=== PATIENT | male | born 1950 | race Caucasian/White ===

== ENCOUNTER 2021-02-28 13:36 | Emergency (ER) | payer MEDICARE, OTHER ==
[~2021-02-28 13:36] MED LIST: ADVIL200 M1 PO; ALLOPURINOL300 MG PO; ASPIRIN EC81 MG PO; B COMPLEX1 EACH PO; CHLORTABS4 MG PO; KRILL OIL 3501 EACH PO; MAGNESIUM CHLOR70 MG PO; SYNTHROID25 MCG PO; VITAMIN D325 GM PO
[2021-02-28 14:11] LABS: BILIRUBIN NEGATIVE (NEGATIVE); BLOOD NEGATIVE Ery/uL (NEGATIVE); CLARITY CLEAR (CLEAR); COLOR YELLOW (YELLOW); GLUCOSE (U) NORMAL (NORMAL); LEUKOCYTES NEGATIVE Leu/uL (NEGATIVE); NITRITE NEGATIVE (NEGATIVE); PROTEIN NEGATIVE (NEGATIVE); SPECIFIC GRAVITY >=1.030 (1.001-1.030); UROBILINOGEN 0.2 mg/dL (0.2-1.0); pH 5.5 (5.0-9.0)
[2021-02-28 14:12] LABS: BASOPHIL 0.4 % (0-2); EOSINOPHIL 1.2 % (0-7); HCT 49.3 % (42.0-52.0); HGB 16.8 g/dl (13.2-18.0); LYMPHOCYTE 25.1 % (15-48); MCH 31.8 pg (25.0-31.0); MCHC 34.1 g/dL (32.0-36.0); MCV 93.2 fL (78.0-100.0); MONOCYTE 8.4 % (0-12); MPV 9.3 fL (6.0-9.5); NEUTROPHIL 64.4 % (41-80); NRBC 0; PLT 251 K/uL (150-400); RBC 5.29 M/uL (4.70-6.00); RDW 13.6 % (11.5-14.0); WBC 10.6 K/uL (4.0-10.5)
[2021-02-28 14:36] LABS: ALBUMIN 3.8 g/dL (3.4-5.0); BILIRUBIN - TOTAL 0.5 mg/dL (0.2-1.0); BUN/CREAT RATIO (CALC) 23.7 RATIO; CREATININE 0.97 mg/dL (0.67-1.17); GLOBULIN (CALCULATION) 3.6 g/dL; POTASSIUM 4.3 mmol/L (3.5-5.1); TOTAL PROTEIN 7.4 g/dL (6.4-8.2)
[2021-02-28] MEDS ORDERED: NORCO 5-325 TA1 EACH PO ×2 (17:24→17:27)
[2021-02-28] MEDS ORDERED: FLOMAX0.4 MG PO (17:26)
== END 2021-02-28 18:00 | disposition home or self-care (01) ==
LOC: FER 13:36
PROVIDERS: Emergency Medicine
DX: N20.0 Calculus of kidney (principal); N28.1 Cyst of kidney, acquired; Z87.442 Personal history of urinary calculi; Z88.5 Allergy status to narcotic agent
CPT/HCPCS: 36415; 80053; 81003; 82150; 83690; 85025; J1885; J2405; J7030

== ENCOUNTER → 2022-04-09 | Day surgery (SDC) | payer MEDICARE, OTHER ==
[~2022-04-09] VITALS: Ht 175.3 cm; Wt 113.4 kg
[~2022-04-09] MED LIST changes: +FLOMAX0.4 MG PO; +MAGNESIUM30 MG PO; +NORCO 5-325 TA1 EACH PO
[2022-04-09 08:06] LABS: HCT 52.3 % (42.0-52.0); HGB 17.9 g/dl (13.2-18.0); MCH 32.2 pg (25.0-31.0); MCHC 34.2 g/dL (32.0-36.0); MCV 94.1 fL (78.0-100.0); MPV 9.2 fL (6.0-9.5); RBC 5.56 M/uL (4.70-6.00); RDW 13.3 % (11.5-14.0); WBC 8.5 K/uL (4.0-10.5)
[2022-04-09 08:23] LABS: ALBUMIN 3.7 g/dL (3.4-5.0); BILIRUBIN - TOTAL 0.6 mg/dL (0.2-1.0); BUN/CREAT RATIO (CALC) 20.5 RATIO; CREATININE 0.78 mg/dL (0.67-1.17); GLOBULIN (CALCULATION) 3.5 g/dL; POTASSIUM 4.2 mmol/L (3.5-5.1); TOTAL PROTEIN 7.2 g/dL (6.4-8.2)
== END | disposition home or self-care (01) ==
LOC: FAS 06:47
PROVIDERS: Surgery
DX: Z12.11 Encounter for screening for malignant neoplasm of colon (principal); D12.0 Benign neoplasm of cecum; D12.3 Benign neoplasm of transverse colon; K57.30 Diverticulosis of large intestine without perforation or abscess without bleeding; Z88.5 Allergy status to narcotic agent; M19.90 Unspecified osteoarthritis, unspecified site; E03.9 Hypothyroidism, unspecified; Z86.010 Personal history of colon polyps
CPT/HCPCS: 36415; 80053; J1610; J2704; J7120